=== PATIENT | female | born 1970 | race Two or more races ===

== ENCOUNTER 2018-05-17 10:24 | Inpatient (IN) | payer SELFPAY ==
[2018-05-17] VITALS (16 sets, daily range): BP systolic 114–154; BP diastolic 56–74
[~2018-05-17] VITALS: Ht 142.2 cm; Wt 54.4 kg
--- NOTE | 2018-05-17 10:42 | PHYS DOC ---
Past Medical History Past Medical History: Anemia, Arthritis Adult General Chief Complaint Chief Complaint: ANEMIA HPI HPI Patient is a 47 year old female with history of rheumatoid arthritis, who presents to the ED today to be evaluated for fatigue a shortness of breath on exertion and dizziness, symptoms for 2 weeks. Patient was seen at [facility] services today, her hemoglobin was 4.2, it was rechecked, and was 5.2 patient was sent to the ED. Patient is also complaining of palpitations and mild left- sided chest pain on exertion. She describes the pain as almost sharp just on exertion. Patient is also complaining of heavy vaginal bleeding. She states for the last 1 year she's been bleeding for 3 weeks. She is currently on her cycle which began 3 weeks ago. She soaking 1 pad every 3 hours. She appears pale and is tachycardic on arrival. Denies any rectal bleeding. Review of Systems Review of Systems Constitutional: Appears pale. Denies fever or chills [] Eyes: Denies change in visual acuity, redness, or eye pain [] HENT: Denies nasal congestion or sore throat [] Respiratory: Denies cough or shortness of breath [] Cardiovascular: Reports chest pain and palpitations GI: Denies abdominal pain, nausea, vomiting, bloody stools or diarrhea [] : Denies dysuria or hematuria [] Musculoskeletal: Denies back pain or joint pain [] Integument: Denies rash or skin lesions [] Neurologic: Denies headache, focal weakness or sensory changes [] All other systems were reviewed and found to be within normal limits, except as documented in this note. Current Medications Current Medications Current Medications Medications (Trade) Dose Ordered Sig/Jessica Start Time Stop Time Status Last Admin Dose Admin Sodium Chloride 1,000 ml @ 1,000 mls/hr 1X ONCE 05/17/18 10:45 05/17/18 11:44 DC 05/17/18 10:53 1,000 MLS/HR Allergies Allergies Allergies Coded Allergies Type Severity Reaction Last Updated Verified No Known Drug Allergies 05/17/18 No Physical Exam Physical Exam Constitutional: Pale-appearing patient.Well developed, well nourished, no acute distress, non-toxic appearance. [] HENT: Normocephalic, atraumatic, bilateral external ears normal, oropharynx moist, no oral exudates, nose normal. [] Eyes: PERRLA, EOMI, conjunctiva normal, no discharge. [] Neck: Normal range of motion, no tenderness, supple, no stridor. [] Cardiovascular: Tachycardic Lungs & Thorax: Bilateral breath sounds clear to auscultation [] Abdomen: Bowel sounds normal, soft, no tenderness, no masses, no pulsatile masses. [] Pelvic exam External pelvic is covered with bright red blood, cervix not well visualized due to bleeding, there is small amount of bright red blood in the vaginal vault , no CMT, no adnexal tenderness. Skin: Warm, dry, no erythema, no rash. [] Back: No tenderness, no CVA tenderness. [] Extremities: No tenderness, no cyanosis, no clubbing, ROM intact, no edema. [] Neurologic: Alert and oriented X 3, normal motor function, normal sensory function, no focal deficits noted. [] Psychologic: Affect normal, judgement normal, mood normal. [] Current Patient Data Vital Signs Vital Signs Date Time Temp Pulse Resp B/P (MAP) Pulse Ox O2 Delivery O2 Flow Rate FiO2 05/17/18 10:25 98.4 99 16 147/75 (99) 100 Room Air 98.4 Lab Values Laboratory Tests Test 05/17/18 10:36 05/17/18 11:10 White Blood Count 7.2 x10^3/uL (4.0-11.0) Red Blood Count 2.55 x10^6/uL (3.50-5.40) L Hemoglobin 4.2 g/dL (12.0-15.5) *L Hematocrit 14.3 % (36.0-47.0) *L Mean Corpuscular Volume 56 fL (79-100) L Mean Corpuscular Hemoglobin 16 pg (25-35) L Mean Corpuscular Hemoglobin Concent 29 g/dL (31-37) L Red Cell Distribution Width 20.8 % (11.5-14.5) H Platelet Count 345 x10^3/uL (140-400) Neutrophils (%) (Auto) 70 % (31-73) Lymphocytes (%) (Auto) 21 % (24-48) L Monocytes (%) (Auto) 6 % (0-9) Eosinophils (%) (Auto) 2 % (0-3) Basophils (%) (Auto) 1 % (0-3) Neutrophils # (Auto) 5.1 x10^3uL (1.8-7.7) Lymphocytes # (Auto) 1.5 x10^3/uL (1.0-4.8) Monocytes # (Auto) 0.4 x10^3/uL (0.0-1.1) Eosinophils # (Auto) 0.2 x10^3/uL (0.0-0.7) Basophils # (Auto) 0.1 x10^3/uL (0.0-0.2) Platelet Estimate Adequate (ADEQUATE) Polychromasia Mod Hypochromasia Marked Poikilocytosis Slight Anisocytosis Marked Sodium Level 138 mmol/L (136-145) Potassium Level 3.8 mmol/L (3.5-5.1) Chloride Level 104 mmol/L (98-107) Carbon Dioxide Level 26 mmol/L (21-32) Anion Gap 8 (6-14) Blood Urea Nitrogen 10 mg/dL (7-20) Creatinine 0.5 mg/dL (0.6-1.0) L Estimated GFR (Cockcroft-Gault) 131.1 BUN/Creatinine Ratio 20 (6-20) Glucose Level 121 mg/dL (70-99) H Calcium Level 8.6 mg/dL (8.5-10.1) Magnesium Level 2.3 mg/dL (1.8-2.4) Total Bilirubin 0.4 mg/dL (0.2-1.0) Aspartate Amino Transferase (AST) 22 U/L (15-37) Alanine Aminotransferase (ALT) 16 U/L (14-59) Alkaline Phosphatase 105 U/L (46-116) Creatine Kinase 73 U/L (26-192) Creatine Kinase MB (Mass) 0.6 ng/mL (0.0-3.6) Creatine Kinase MB Relative Index % (0-4) Troponin I Quantitative < 0.017 ng/mL (0.000-0.055) VZ-Wml-P-Type Natriuretic Peptide 198 pg/mL (0-124) H Total Protein 7.6 g/dL (6.4-8.2) Albumin 3.5 g/dL (3.4-5.0) Albumin/Globulin Ratio 0.9 (1.0-1.7) L Thyroid Stimulating Hormone (TSH) 3.624 uIU/mL (0.358-3.74) Urine Collection Type Void Urine Color Yellow Urine Clarity Clear Urine pH 7.0 Urine Specific [place] <=1.005 Urine Protein Negative mg/dL (NEG-TRACE) Urine Glucose (UA) Negative mg/dL (NEG) Urine Ketones (Stick) Negative mg/dL (NEG) Urine Blood Moderate (NEG) Urine Nitrite Negative (NEG) Urine Bilirubin Negative (NEG) Urine Urobilinogen Dipstick 0.2 mg/dL (0.2 mg/dL) Urine Leukocyte Esterase Trace (NEG) Urine RBC Occ /HPF (0-2) Urine WBC 5-10 /HPF (0-4) Urine Squamous Epithelial Cells Mod /LPF Urine Bacteria Few /HPF (0-FEW) Laboratory Tests 05/17/18 10:36 Laboratory Tests 05/17/18 10:36 EKG EKG [] Radiology/Procedures Radiology/Procedures [] Course & Med Decision Making Course & Med Decision Making Pertinent Labs and Imaging studies reviewed. (See chart for details) This is a 47-year-old female patient presenting to the ED today from [facility] to be evaluated for anemia, fatigue, chest pain, dizziness and shortness of breath.See history of present illness for further information. Patient appears pale and is tachycardic on arrival. You have been in the ED 4.2 hematocrit 14.3, on pelvic exam she had small amount of bright red blood in the vaginal vault. She's been bleeding for 3 weeks. 2 units of blood ordered. Consulted with Dr. Alexander who accepted patient for admission. Spoke with Dr. Monroy she will see patient later Interpretation was provided by family Lay Disclaimer Lay Disclaimer This electronic medical record was generated, in whole or in part, using a voice recognition dictation system. Departure Departure Impression: Primary Impression: Anemia Additional Impression: Dysfunctional uterine bleeding Disposition: ADMITTED INPATIENT Condition: STABLE Problem Qualifiers Primary Impression: Anemia Anemia type: unspecified type Qualified Codes: D64.9 - Anemia, unspecified ERIC PONCE ASSISTANT WRESTLING COACH May 17, 2018 10:42
[2018-05-17] MEDS ORDERED: IV NORMAL SALINE 1000ML BAG 1,000 ML IV ONE (10:45)
--- NOTE | 2018-05-17 10:57 | RAD ---
PROCEDURE: PORTABLE CHEST 1V CLINICAL INDICATION: DIZZINESS COMPARISON: None FINDINGS: No pneumothorax identified. Cardiac and mediastinal contours unremarkable. No pulmonary consolidation or acute airspace disease. No acute osseous abnormalities identified. IMPRESSION: No pulmonary consolidation or acute airspace disease. Electronically signed by: Conrad Zepeda DO (05/17/2018 10:54 AM) [facility]
[2018-05-17 11:18] LABS: BASO # 0.1 x10^3/uL (0.0-0.2); BASO % 1 % (0-3); EOS # 0.2 x10^3/uL (0.0-0.7); EOS % 2 % (0-3); LYMPH # 1.5 x10^3/uL (1.0-4.8); LYMPH % 21 % (24-48); MEAN CORPUSCULAR HEMOGLOBIN 16 pg (25-35); MEAN CORPUSCULAR HGB CONC 29 g/dL (31-37); MEAN CORPUSCULAR VOLUME 56 fL (79-100); MONO # 0.4 x10^3/uL (0.0-1.1); MONO % 6 % (0-9); NEUT # 5.1 x10^3uL (1.8-7.7); NEUT % 70 % (31-73); PLATELET COUNT 345 x10^3/uL (140-400); RED BLOOD COUNT 2.55 x10^6/uL (3.50-5.40); RED CELL DISTRIBUTION WIDTH 20.8 % (11.5-14.5); WHITE BLOOD COUNT 7.2 x10^3/uL (4.0-11.0)
[2018-05-17 11:21] LABS: HEMATOCRIT 14.3 % (36.0-47.0); HEMOGLOBIN 4.2 g/dL (12.0-15.5)
[2018-05-17 11:23] LABS: CALCIUM 8.6 mg/dL (8.5-10.1); CREATININE 0.5 mg/dL (0.6-1.0); GFR 131.1; POTASSIUM 3.8 mmol/L (3.5-5.1)
[2018-05-17 11:30] LABS: BILIRUBIN,URINE NEGATIVE (NEG); CLARITY,URINE CLEAR; COLOR,URINE YELLOW; NITRITE,URINE NEGATIVE (NEG); PROTEIN,URINE NEGATIVE (NEG-TRACE); UROBILINOGEN,URINE 0.2 mg/dL (0.2 mg/dL)
[2018-05-17 11:35] LABS: ALBUMIN 3.5 g/dL (3.4-5.0); ALBUMIN/GLOBULIN RATIO 0.9 (1.0-1.7); MAGNESIUM 2.3 mg/dL (1.8-2.4); TOTAL BILIRUBIN 0.4 mg/dL (0.2-1.0); TOTAL PROTEIN 7.6 g/dL (6.4-8.2)
[2018-05-17 11:38] LABS: CREATINE KINASE 73 U/L (26-192)
[2018-05-17 11:40] LABS: BACTERIA,URINE FEW /HPF (0-FEW); RBC,URINE OCC /HPF (0-2); SQUAMOUS EPITHELIAL CELL,UR MOD /LPF
--- NOTE | 2018-05-17 11:40 | EKG ---
[facility] [address] [place] [address] Test Date: 2018-05-17 Test Time: 10:32:30 Pat Name: FLORENCIO WILSON Department: Room: Gender: F Rivet Tester: : 1970 Requested By: ERIC PONCE Order Number: [id number] Reading MD: Dominik Pearce MD Measurements Intervals [place] Rate: 99 P: 126 MA: 132 QRS: 105 QRSD: 114 T: 30 QT: 336 QTc: 436 Interpretive Statements SR RBBB Electronically Signed On 05-20-2018 16:08:13 CDT by Dominik Pearce MD
[2018-05-17 11:51] LABS: ANISOCYTOSIS MARKED; HYPOCHROMIA MARKED; PLT ESTIMATE ADEQUATE (ADEQUATE); POLYCHROMASIA MOD
[2018-05-17 11:52] LABS: POIKILOCYTOSIS SLIGHT
--- NOTE | 2018-05-17 12:35 | RAD ---
PELVIS W/TV Clinical Indication: HEAVY BLEEDING FOR 3 WEEKS, ANEMIA Comparison: None. TECHNIQUE: Real-time ultrasound imaging of the pelvis using transabdominal and transvaginal window is performed. Findings: Uterus measures 9 x 5.4 x 4 cm. No focal abnormality of the myometrium. There are at least 3 nabothian cysts, largest measures 1.4 cm. The endometrial stripe is normal measuring 1.3 cm. The right ovary is not identified transabdominally or transvaginally. Left ovary measures 2.7 x 2.8 x 1.7 cm. There is normal blood flow. There is a 1.8 cm follicle. IMPRESSION: 1. Multiple nabothian cysts. 2. The right ovary is not identified. Electronically signed by: Donn Belcher MD (05/17/2018 12:32 PM) [id number]
[2018-05-17] MEDS ORDERED: ACETAMINOPHEN 325 MG TABLET. PO PRN (13:00)
[2018-05-17] MEDS ORDERED: MORPHINE SULFATE 2 MG/ML VIAL. IV PRN (13:00)
[2018-05-17] MEDS ORDERED: ONDANSETRON PF 4 MG/2 ML VIAL. IV PRN (13:00)
--- NOTE | 2018-05-17 18:40 | PDOC1 ---
History and Physical Date of Admission Date of Admission 05/17/2018 Identification/Chief Complaint Chief Complaint anemia Problems: (1) Vagina bleeding (2) Anemia Source Source: Chart review, Patient History of Present Illness History of Present Illness Patient is a 47 year ofl female with history of 3 weeks worth of vaginal bleeding. Patient has had similar symptoms in the past but has not felt this fatigued before. The patient also expereinced ringing in her ears, no palpitations, no orthostasis reported. Patient has not lost consciousness but does feel more fatigued than ususal. She was seen in an outpatient clinic wehere she was told her HB was critically low. She was found to have and anemia of 4 reason why she is being admitted. She will need MOLD DRESSER evaluation due to the acute blood loss. She denies chest pain, no headache no blurred vision, no abdominal discomfort. no nausea vomiting or diarrhea. Plan of care explained in detail. All concerns addressed to the best of my abilities. ER history: Patient is a 47 year old female with history of rheumatoid arthritis, who presents to the ED today to be evaluated for fatigue a shortness of breath on exertion and dizziness, symptoms for 2 weeks. Patient was seen at [facility] services today, her hemoglobin was 4.2, it was rechecked, and was 5.2 patient was sent to the ED. Patient is also complaining of palpitations and mild left- sided chest pain on exertion. She describes the pain as almost sharp just on exertion. Patient is also complaining of heavy vaginal bleeding. She states for the last 1 year she's been bleeding for 3 weeks. She is currently on her cycle which began 3 weeks ago. She soaking 1 pad every 3 hours. She appears pale and is tachycardic on arrival. Denies any rectal bleeding. Current Problem List Problem List Problems Medical Problems: (1) Anemia Status: Acute (2) Dysfunctional uterine bleeding Status: Acute Current Medications Current Medications Current Medications Medications (Trade) Dose Ordered Sig/[facility] Start Time Stop Time Status Last Admin Dose Admin Acetaminophen (Tylenol) 650 mg PRN Q4HRS PRN 05/17/18 13:00 05/18/18 12:59 Morphine Sulfate (Morphine Sulfate) 2 mg PRN Q2HR PRN 05/17/18 13:00 05/18/18 12:59 Ondansetron HCl (Zofran) 4 mg PRN Q8HRS PRN 05/17/18 13:00 05/18/18 12:59 Sodium Chloride 1,000 ml @ 1,000 mls/hr 1X ONCE 05/17/18 10:45 05/17/18 11:44 DC 05/17/18 10:53 1,000 MLS/HR Allergies Allergies Allergies Coded Allergies Type Severity Reaction Last Updated Verified No Known Drug Allergies 05/17/18 No ROS Review of System CONSTITUTIONAL: No fever or chills EYES: No recent changes SKIN: No rash or itching CARDIOVASCULAR: No chest pain, syncope, palpitations, or edema RESPIRATORY: No SOB or cough GASTROINTESTINAL: No nausea, vomiting or abdominal pain NEUROLOGICAL: No headaches or weakness ENDOCRINE: No cold or heat intolerance GENITOURINARY: No urgency or frequency of urination MUSCULOSKELETAL: No back pain or joint pain LYMPHATICS: No enlarged lymph nodes PSYCHIATRIC: No anxiety or depression Physical Exam Physical Exam GEN.: No apparent distress. Alert and oriented. HEENT: Head is normocephalic, atraumatic NECK: Supple. LUNGS: Clear to auscultation. HEART: RRR, S1, S2 present. Peripheral pulses intact ABDOMEN: Soft, nontender. Positive bowel sounds. EXTREMITIES: Without any cyanosis. NEUROLOGIC: Normal speech, normal tone PSYCHIATRIC: Normal affect, normal mood. SKIN: No ulcerations Vitals Vitals Vital Signs Date Time Temp Pulse Resp B/P (MAP) Pulse Ox O2 Delivery O2 Flow Rate FiO2 05/17/18 18:31 98.3 88 16 134/72 98.3 05/17/18 15:00 100 Room Air Labs Labs Laboratory Tests Test 05/17/18 10:36 05/17/18 11:10 White Blood Count 7.2 x10^3/uL (4.0-11.0) Red Blood Count 2.55 x10^6/uL (3.50-5.40) Hemoglobin 4.2 g/dL (12.0-15.5) Hematocrit 14.3 % (36.0-47.0) Mean Corpuscular Volume 56 fL (79-100) Mean Corpuscular Hemoglobin 16 pg (25-35) Mean Corpuscular Hemoglobin Concent 29 g/dL (31-37) Red Cell Distribution Width 20.8 % (11.5-14.5) Platelet Count 345 x10^3/uL (140-400) Neutrophils (%) (Auto) 70 % (31-73) Lymphocytes (%) (Auto) 21 % (24-48) Monocytes (%) (Auto) 6 % (0-9) Eosinophils (%) (Auto) 2 % (0-3) Basophils (%) (Auto) 1 % (0-3) Neutrophils # (Auto) 5.1 x10^3uL (1.8-7.7) Lymphocytes # (Auto) 1.5 x10^3/uL (1.0-4.8) Monocytes # (Auto) 0.4 x10^3/uL (0.0-1.1) Eosinophils # (Auto) 0.2 x10^3/uL (0.0-0.7) Basophils # (Auto) 0.1 x10^3/uL (0.0-0.2) Platelet Estimate Adequate (ADEQUATE) Polychromasia Mod Hypochromasia Marked Poikilocytosis Slight Anisocytosis Marked Sodium Level 138 mmol/L (136-145) Potassium Level 3.8 mmol/L (3.5-5.1) Chloride Level 104 mmol/L (98-107) Carbon Dioxide Level 26 mmol/L (21-32) Anion Gap 8 (6-14) Blood Urea Nitrogen 10 mg/dL (7-20) Creatinine 0.5 mg/dL (0.6-1.0) Estimated GFR (Cockcroft-Gault) 131.1 BUN/Creatinine Ratio 20 (6-20) Glucose Level 121 mg/dL (70-99) Calcium Level 8.6 mg/dL (8.5-10.1) Magnesium Level 2.3 mg/dL (1.8-2.4) Total Bilirubin 0.4 mg/dL (0.2-1.0) Aspartate Amino Transf (AST/SGOT) 22 U/L (15-37) Alanine Aminotransferase (ALT/SGPT) 16 U/L (14-59) Alkaline Phosphatase 105 U/L (46-116) Creatine Kinase 73 U/L (26-192) Creatine Kinase MB (Mass) 0.6 ng/mL (0.0-3.6) Creatine Kinase MB Relative Index % (0-4) Troponin I Quantitative < 0.017 ng/mL (0.000-0.055) PS-Dtr-K-Type Natriuretic Peptide 198 pg/mL (0-124) Total Protein 7.6 g/dL (6.4-8.2) Albumin 3.5 g/dL (3.4-5.0) Albumin/Globulin Ratio 0.9 (1.0-1.7) Thyroid Stimulating Hormone (TSH) 3.624 uIU/mL (0.358-3.74) Urine Collection Type Void Urine Color Yellow Urine Clarity Clear Urine pH 7.0 Urine Specific [place] <=1.005 Urine Protein Negative mg/dL (NEG-TRACE) Urine Glucose (UA) Negative mg/dL (NEG) Urine Ketones (Stick) Negative mg/dL (NEG) Urine Blood Moderate (NEG) Urine Nitrite Negative (NEG) Urine Bilirubin Negative (NEG) Urine Urobilinogen Dipstick 0.2 mg/dL (0.2 mg/dL) Urine Leukocyte Esterase Trace (NEG) Urine RBC Occ /HPF (0-2) Urine WBC 5-10 /HPF (0-4) Urine Squamous Epithelial Cells Mod /LPF Urine Bacteria Few /HPF (0-FEW) Laboratory Tests Test 05/17/18 10:36 05/17/18 11:10 White Blood Count 7.2 x10^3/uL (4.0-11.0) Red Blood Count 2.55 x10^6/uL (3.50-5.40) Hemoglobin 4.2 g/dL (12.0-15.5) Hematocrit 14.3 % (36.0-47.0) Mean Corpuscular Volume 56 fL (79-100) Mean Corpuscular Hemoglobin 16 pg (25-35) Mean Corpuscular Hemoglobin Concent 29 g/dL (31-37) Red Cell Distribution Width 20.8 % (11.5-14.5) Platelet Count 345 x10^3/uL (140-400) Neutrophils (%) (Auto) 70 % (31-73) Lymphocytes (%) (Auto) 21 % (24-48) Monocytes (%) (Auto) 6 % (0-9) Eosinophils (%) (Auto) 2 % (0-3) Basophils (%) (Auto) 1 % (0-3) Neutrophils # (Auto) 5.1 x10^3uL (1.8-7.7) Lymphocytes # (Auto) 1.5 x10^3/uL (1.0-4.8) Monocytes # (Auto) 0.4 x10^3/uL (0.0-1.1) Eosinophils # (Auto) 0.2 x10^3/uL (0.0-0.7) Basophils # (Auto) 0.1 x10^3/uL (0.0-0.2) Platelet Estimate Adequate (ADEQUATE) Polychromasia Mod Hypochromasia Marked Poikilocytosis Slight Anisocytosis Marked Sodium Level 138 mmol/L (136-145) Potassium Level 3.8 mmol/L (3.5-5.1) Chloride Level 104 mmol/L (98-107) Carbon Dioxide Level 26 mmol/L (21-32) Anion Gap 8 (6-14) Blood Urea Nitrogen 10 mg/dL (7-20) Creatinine 0.5 mg/dL (0.6-1.0) Estimated GFR (Cockcroft-Gault) 131.1 BUN/Creatinine Ratio 20 (6-20) Glucose Level 121 mg/dL (70-99) Calcium Level 8.6 mg/dL (8.5-10.1) Magnesium Level 2.3 mg/dL (1.8-2.4) Total Bilirubin 0.4 mg/dL (0.2-1.0) Aspartate Amino Transf (AST/SGOT) 22 U/L (15-37) Alanine Aminotransferase (ALT/SGPT) 16 U/L (14-59) Alkaline Phosphatase 105 U/L (46-116) Creatine Kinase 73 U/L (26-192) Creatine Kinase MB (Mass) 0.6 ng/mL (0.0-3.6) Creatine Kinase MB Relative Index % (0-4) Troponin I Quantitative < 0.017 ng/mL (0.000-0.055) GH-Wcl-G-Type Natriuretic Peptide 198 pg/mL (0-124) Total Protein 7.6 g/dL (6.4-8.2) Albumin 3.5 g/dL (3.4-5.0) Albumin/Globulin Ratio 0.9 (1.0-1.7) Thyroid Stimulating Hormone (TSH) 3.624 uIU/mL (0.358-3.74) Urine Collection Type Void Urine Color Yellow Urine Clarity Clear Urine pH 7.0 Urine Specific [place] <=1.005 Urine Protein Negative mg/dL (NEG-TRACE) Urine Glucose (UA) Negative mg/dL (NEG) Urine Ketones (Stick) Negative mg/dL (NEG) Urine Blood Moderate (NEG) Urine Nitrite Negative (NEG) Urine Bilirubin Negative (NEG) Urine Urobilinogen Dipstick 0.2 mg/dL (0.2 mg/dL) Urine Leukocyte Esterase Trace (NEG) Urine RBC Occ /HPF (0-2) Urine WBC 5-10 /HPF (0-4) Urine Squamous Epithelial Cells Mod /LPF Urine Bacteria Few /HPF (0-FEW) VTE Prophylaxis Ordered VTE Prophylaxis Devices: Yes VTE Pharmacological Prophylaxi: No Assessment/Plan Assessment/Plan Vaginal bleeding Microcytic anemia secodnary to acute blood loss DUB History of RA on methotrexate Folic acid supplementation. Plan: transfuse 3 units of PRBC consult MOLD DRESSER resume home meds hold anticoagulation further reocmmendations based on clinical course. DVT prophylaxis: SCD and TEDs Problem Qualifiers (1) Anemia: Anemia type: unspecified type Qualified Codes: D64.9 - Anemia, unspecified MARCELLO ZHAO MD May 17, 2018 18:40
[2018-05-18 03:00] VITALS: BP 135/74
--- NOTE | 2018-05-18 06:43 | CONS ---
DATE OF CONSULTATION: HISTORY OF PRESENT ILLNESS: This patient is a 47-year-old [place] lady who is a 3, para 3, came in to the Emergency Room because of dizziness, vaginal bleeding and anemia. She had a hemoglobin of 4 at the time of admission to the hospital and she has received 3 units of blood transfusion at this time. She is seen in consultation for vaginal bleeding and she is a 3, para 3 and has history of excessive bleeding with the period. She has been bleeding since 04/23/2018 and at the present time, the bleeding has slowed down and also she has received the blood transfusion. PHYSICAL EXAMINATION: ABDOMEN: Feels soft. PELVIC: Shows external genitalia being normal. Cervical os is closed. UTERUS: On bimanual exam, uterus feels slightly bulky. No adnexal masses are palpable at this time. EXTREMITIES: No edema of feet. IMPRESSION: Dysfunctional uterine bleeding, menorrhagia. RECOMMENDATION: Would be whenever the patient is stable, she is going to need a diagnostic D and C, which has been explained to the patient and she prefers to have medical treatment at this time and not surgery, hence we will give her 200 mg of Depo-Provera IM to stop the bleeding at this time. Thank you for giving me opportunity to participate in the care and management of this patient. DELLA LEMUS MD DR: FRANSISCO/sven JOB#: [id number] / [id number]
[2018-05-18 07:00] VITALS: BP 131/73
[2018-05-18 07:54] LABS: BASO # 0.1 x10^3/uL (0.0-0.2); BASO % 1 % (0-3); EOS # 0.3 x10^3/uL (0.0-0.7); EOS % 3 % (0-3); HEMATOCRIT 28.5 % (36.0-47.0); HEMOGLOBIN 9.1 g/dL (12.0-15.5); LYMPH # 1.9 x10^3/uL (1.0-4.8); LYMPH % 21 % (24-48); MEAN CORPUSCULAR HEMOGLOBIN 23 pg (25-35); MEAN CORPUSCULAR HGB CONC 32 g/dL (31-37); MEAN CORPUSCULAR VOLUME 72 fL (79-100); MONO # 0.8 x10^3/uL (0.0-1.1); MONO % 8 % (0-9); NEUT # 6.1 x10^3uL (1.8-7.7); NEUT % 66 % (31-73); PLATELET COUNT 276 x10^3/uL (140-400); RED BLOOD COUNT 3.97 x10^6/uL (3.50-5.40); RED CELL DISTRIBUTION WIDTH 32.8 % (11.5-14.5); WHITE BLOOD COUNT 9.3 x10^3/uL (4.0-11.0)
[2018-05-18 08:22] LABS: CALCIUM 8.3 mg/dL (8.5-10.1); CREATININE 0.6 mg/dL (0.6-1.0); GFR 106.3; POTASSIUM 4.4 mmol/L (3.5-5.1)
[2018-05-18] MEDS ORDERED: medroxyPROGESTERone IM 150 MG/ML VIAL. IM ONE (09:00)
[2018-05-18 11:00] VITALS: BP 147/70
--- NOTE | 2018-05-18 11:22 | PDOC ---
PROGRESS NOTES Chief Complaint Chief Complaint Dysfunction Uterine Bleeding Microcytic anemia secondary to acute blood loss Low Hemoglobin - 4 s/p 3 units, Hgb currently 9.1 History of RA on methotrexate Folic acid supplementation History of Present Illness History of Present Illness Ms. Saldivar presented with significant vaginal bleeding with Hgb of 4. Patient was seen by workforce development assistant and started on Depo-Provera. Bleeding has improved. Patient seen and examined at bedside. Discussed with nurse. Patient ready for discharge and follow up with RADIATION PROTECTION TECHNICIAN outpatient. Hemoglobin elevated at 9.1 s/p 3 Units. Vitals Vitals Vital Signs Date Time Temp Pulse Resp B/P (MAP) Pulse Ox O2 Delivery O2 Flow Rate FiO2 05/18/18 07:00 98.3 80 18 131/73 (92) 99 Room Air 98.3 Physical Exam General: Alert, Oriented X3, Cooperative, No acute distress Heart: Regular rate, No murmurs Lungs: Clear Abdomen: Normal bowel sounds, Soft, No tenderness Extremities: No clubbing, No cyanosis, No edema Skin: No rashes, No significant lesion Labs LABS Laboratory Tests Test 05/18/18 06:20 05/18/18 06:30 Sodium Level 142 mmol/L (136-145) Potassium Level 4.4 mmol/L (3.5-5.1) Chloride Level 107 mmol/L (98-107) Carbon Dioxide Level 24 mmol/L (21-32) Anion Gap 11 (6-14) Blood Urea Nitrogen 10 mg/dL (7-20) Creatinine 0.6 mg/dL (0.6-1.0) Estimated GFR (Cockcroft-Gault) 106.3 Glucose Level 85 mg/dL (70-99) Calcium Level 8.3 mg/dL (8.5-10.1) White Blood Count 9.3 x10^3/uL (4.0-11.0) Red Blood Count 3.97 x10^6/uL (3.50-5.40) Hemoglobin 9.1 g/dL (12.0-15.5) Hematocrit 28.5 % (36.0-47.0) Mean Corpuscular Volume 72 fL (79-100) Mean Corpuscular Hemoglobin 23 pg (25-35) Mean Corpuscular Hemoglobin Concent 32 g/dL (31-37) Red Cell Distribution Width 32.8 % (11.5-14.5) Platelet Count 276 x10^3/uL (140-400) Neutrophils (%) (Auto) 66 % (31-73) Lymphocytes (%) (Auto) 21 % (24-48) Monocytes (%) (Auto) 8 % (0-9) Eosinophils (%) (Auto) 3 % (0-3) Basophils (%) (Auto) 1 % (0-3) Neutrophils # (Auto) 6.1 x10^3uL (1.8-7.7) Lymphocytes # (Auto) 1.9 x10^3/uL (1.0-4.8) Monocytes # (Auto) 0.8 x10^3/uL (0.0-1.1) Eosinophils # (Auto) 0.3 x10^3/uL (0.0-0.7) Basophils # (Auto) 0.1 x10^3/uL (0.0-0.2) Review of Systems Review of Systems Denies vaginal bleeding Denies abdominal pain Denies fevers, chills Denies nausea/vomiting Assessment and Plan Assessmemt and Plan Problems Medical Problems: (1) Anemia Status: Acute (2) Dysfunctional uterine bleeding Status: Acute Assessment: Dysfunction Uterine Bleeding Microcytic anemia secondary to acute blood loss Low Hemoglobin - 4 s/p 3 units, Hgb currently 9.1 History of RA on methotrexate Folic acid supplementation Plan: Discharge today if agreeable with Dressage Instructor Follow up with PCP and Dressage Instructor outpatient Return to ED with worsening bleeding Continue to monitor hgb Monitor vitals Comment Review of Relevant I have reviewed the following items rsa (where applicable) has been applied. Labs Laboratory Tests Test 05/17/18 10:36 05/17/18 11:10 05/18/18 06:20 05/18/18 06:30 White Blood Count 7.2 x10^3/uL (4.0-11.0) 9.3 x10^3/uL (4.0-11.0) Red Blood Count 2.55 x10^6/uL (3.50-5.40) 3.97 x10^6/uL (3.50-5.40) Hemoglobin 4.2 g/dL (12.0-15.5) 9.1 g/dL (12.0-15.5) Hematocrit 14.3 % (36.0-47.0) 28.5 % (36.0-47.0) Mean Corpuscular Volume 56 fL (79-100) 72 fL (79-100) Mean Corpuscular Hemoglobin 16 pg (25-35) 23 pg (25-35) Mean Corpuscular Hemoglobin Concent 29 g/dL (31-37) 32 g/dL (31-37) Red Cell Distribution Width 20.8 % (11.5-14.5) 32.8 % (11.5-14.5) Platelet Count 345 x10^3/uL (140-400) 276 x10^3/uL (140-400) Neutrophils (%) (Auto) 70 % (31-73) 66 % (31-73) Lymphocytes (%) (Auto) 21 % (24-48) 21 % (24-48) Monocytes (%) (Auto) 6 % (0-9) 8 % (0-9) Eosinophils (%) (Auto) 2 % (0-3) 3 % (0-3) Basophils (%) (Auto) 1 % (0-3) 1 % (0-3) Neutrophils # (Auto) 5.1 x10^3uL (1.8-7.7) 6.1 x10^3uL (1.8-7.7) Lymphocytes # (Auto) 1.5 x10^3/uL (1.0-4.8) 1.9 x10^3/uL (1.0-4.8) Monocytes # (Auto) 0.4 x10^3/uL (0.0-1.1) 0.8 x10^3/uL (0.0-1.1) Eosinophils # (Auto) 0.2 x10^3/uL (0.0-0.7) 0.3 x10^3/uL (0.0-0.7) Basophils # (Auto) 0.1 x10^3/uL (0.0-0.2) 0.1 x10^3/uL (0.0-0.2) Platelet Estimate Adequate (ADEQUATE) Polychromasia Mod Hypochromasia Marked Poikilocytosis Slight Anisocytosis Marked Sodium Level 138 mmol/L (136-145) 142 mmol/L (136-145) Potassium Level 3.8 mmol/L (3.5-5.1) 4.4 mmol/L (3.5-5.1) Chloride Level 104 mmol/L (98-107) 107 mmol/L (98-107) Carbon Dioxide Level 26 mmol/L (21-32) 24 mmol/L (21-32) Anion Gap 8 (6-14) 11 (6-14) Blood Urea Nitrogen 10 mg/dL (7-20) 10 mg/dL (7-20) Creatinine 0.5 mg/dL (0.6-1.0) 0.6 mg/dL (0.6-1.0) Estimated GFR (Cockcroft-Gault) 131.1 106.3 BUN/Creatinine Ratio 20 (6-20) Glucose Level 121 mg/dL (70-99) 85 mg/dL (70-99) Calcium Level 8.6 mg/dL (8.5-10.1) 8.3 mg/dL (8.5-10.1) Magnesium Level 2.3 mg/dL (1.8-2.4) Total Bilirubin 0.4 mg/dL (0.2-1.0) Aspartate Amino Transf (AST/SGOT) 22 U/L (15-37) Alanine Aminotransferase (ALT/SGPT) 16 U/L (14-59) Alkaline Phosphatase 105 U/L (46-116) Creatine Kinase 73 U/L (26-192) Creatine Kinase MB (Mass) 0.6 ng/mL (0.0-3.6) Creatine Kinase MB Relative Index % (0-4) Troponin I Quantitative < 0.017 ng/mL (0.000-0.055) MZ-Plw-M-Type Natriuretic Peptide 198 pg/mL (0-124) Total Protein 7.6 g/dL (6.4-8.2) Albumin 3.5 g/dL (3.4-5.0) Albumin/Globulin Ratio 0.9 (1.0-1.7) Thyroid Stimulating Hormone (TSH) 3.624 uIU/mL (0.358-3.74) Urine Collection Type Void Urine Color Yellow Urine Clarity Clear Urine pH 7.0 Urine Specific [place] <=1.005 Urine Protein Negative mg/dL (NEG-TRACE) Urine Glucose (UA) Negative mg/dL (NEG) Urine Ketones (Stick) Negative mg/dL (NEG) Urine Blood Moderate (NEG) Urine Nitrite Negative (NEG) Urine Bilirubin Negative (NEG) Urine Urobilinogen Dipstick 0.2 mg/dL (0.2 mg/dL) Urine Leukocyte Esterase Trace (NEG) Urine RBC Occ /HPF (0-2) Urine WBC 5-10 /HPF (0-4) Urine Squamous Epithelial Cells Mod /LPF Urine Bacteria Few /HPF (0-FEW) Laboratory Tests Test 05/18/18 06:20 05/18/18 06:30 Sodium Level 142 mmol/L (136-145) Potassium Level 4.4 mmol/L (3.5-5.1) Chloride Level 107 mmol/L (98-107) Carbon Dioxide Level 24 mmol/L (21-32) Anion Gap 11 (6-14) Blood Urea Nitrogen 10 mg/dL (7-20) Creatinine 0.6 mg/dL (0.6-1.0) Estimated GFR (Cockcroft-Gault) 106.3 Glucose Level 85 mg/dL (70-99) Calcium Level 8.3 mg/dL (8.5-10.1) White Blood Count 9.3 x10^3/uL (4.0-11.0) Red Blood Count 3.97 x10^6/uL (3.50-5.40) Hemoglobin 9.1 g/dL (12.0-15.5) Hematocrit 28.5 % (36.0-47.0) Mean Corpuscular Volume 72 fL (79-100) Mean Corpuscular Hemoglobin 23 pg (25-35) Mean Corpuscular Hemoglobin Concent 32 g/dL (31-37) Red Cell Distribution Width 32.8 % (11.5-14.5) Platelet Count 276 x10^3/uL (140-400) Neutrophils (%) (Auto) 66 % (31-73) Lymphocytes (%) (Auto) 21 % (24-48) Monocytes (%) (Auto) 8 % (0-9) Eosinophils (%) (Auto) 3 % (0-3) Basophils (%) (Auto) 1 % (0-3) Neutrophils # (Auto) 6.1 x10^3uL (1.8-7.7) Lymphocytes # (Auto) 1.9 x10^3/uL (1.0-4.8) Monocytes # (Auto) 0.8 x10^3/uL (0.0-1.1) Eosinophils # (Auto) 0.3 x10^3/uL (0.0-0.7) Basophils # (Auto) 0.1 x10^3/uL (0.0-0.2) Medications Current Medications Sodium Chloride 1,000 ml @ 1,000 mls/hr 1X ONCE IV Last administered on at 10:53; Start 05/17/18 at 10:45; Stop 05/17/18 at 11:44; Status DC Ondansetron HCl (Zofran) 4 mg PRN Q8HRS PRN IV NAUSEA/VOMITING; Start 05/17/18 at 13:00; Stop 05/18/18 at 12:59 Morphine Sulfate (Morphine Sulfate) 2 mg PRN Q2HR PRN IV PAIN; Start 05/17/18 at 13:00; Stop 05/18/18 at 12:59 Acetaminophen (Tylenol) 650 mg PRN Q4HRS PRN PO FEVER Last administered on 05/18at 01:57; Start 05/17/18 at 13:00; Stop 05/18/18 at 12:59 Medroxyprogesterone Acetate (Depo-Provera Im) 200 mg 1X ONCE IM Last administered on 05/18/18at 08:59; Start 05/18/18 at 09:00; Stop 05/18/18 at 09:01 ; Status DC Vitals/I & O Vital Sign - Last 24 Hours 05/17/18 05/17/18 05/17/18 05/17/18 11:25 11:55 12:25 12:43 Temp 98.6 98.6 98.6 98.6 Pulse 92 89 95 93 Resp 16 18 18 18 B/P (MAP) 120/72 (88) 125/68 (87) 115/51 (72) 114/56 Pulse Ox 99 98 100 O2 Delivery Room Air Room Air Room Air 05/17/18 05/17/18 05/17/18 05/17/18 12:58 12:58 13:12 13:52 Temp 99.1 99.1 99.1 98.6 99.1 99.1 99.1 98.6 Pulse 92 89 96 Resp 18 16 16 B/P (MAP) 116/65 116/65 124/63 (83) Pulse Ox 100 O2 Delivery Room Air 05/17/18 05/17/18 05/17/18 05/17/18 14:00 14:12 15:00 15:32 Temp 98.5 98.6 98.6 98.5 98.6 98.6 Pulse 103 89 89 Resp 16 14 B/P (MAP) 132/74 154/61 (92) 154/61 Pulse Ox 100 O2 Delivery Room Air Room Air 05/17/18 05/17/18 05/17/18 05/17/18 15:55 16:55 18:31 18:49 Temp 98.6 98.3 98.3 98.3 98.6 98.3 98.3 98.3 Pulse 86 86 88 98 Resp 16 16 B/P (MAP) 116/62 127/64 134/72 115/59 05/17/18 05/17/18 05/17/18 05/17/18 19:00 19:46 20:00 20:36 Temp 98.6 98.8 98.7 98.6 98.8 98.7 Pulse 101 92 90 Resp 18 B/P (MAP) 124/63 (83) 129/66 128/68 Pulse Ox 98 O2 Delivery Room Air Room Air 05/17/18 05/17/18 05/18/18 05/18/18 22:03 23:00 03:00 07:00 Temp 98.0 99.0 98.8 98.3 98.0 99.0 98.8 98.3 Pulse 89 87 81 80 Resp 18 B/P (MAP) 129/70 125/74 (91) 135/74 (94) 131/73 (92) Pulse Ox 98 98 99 O2 Delivery Room Air Room Air Room Air Intake and Output 05/17/18 05/17/18 05/18/18 15:00 23:00 07:00 Intake Total 1656 ml 410 ml 600 ml Balance 1656 ml 410 ml 600 ml WESLEY RACHEL III DO May 18, 2018 11:22
--- NOTE | 2018-05-18 13:18 | DS ---
DATE OF DISCHARGE: 05/18/2018 ADMISSION DIAGNOSES: Anemia with dizziness and vaginal bleeding. DISCHARGE DIAGNOSIS: Dysfunctional uterine bleeding with resolving anemia. HOSPITAL COURSE: The patient is a pleasant 47-year-old healthy female who basically has dysfunctional uterine bleeding. She presented with a hemoglobin of 4. We admitted her. Transfused 3 units, is now up to 9.1. We did consult Dr. Biggs of the Gynecology Service. Clinically, the patient is at her baseline. Examined her this morning. Heart tones were normal. Lungs were clear. We plan to discharge with close outpatient followup. DISPOSITION: Home. ACTIVITY: As tolerated. DIET: Low sodium. MEDICATIONS: Please see the MRAD. TOTAL TIME: 32 minutes. WESLEY RACHEL DO DR: MICHELLE/sven JOB#: [id number] / [id number]
--- NOTE | 2018-05-18 14:33 | NUR ---
Discharge teaching provided written and verbal to pt's daughter,understanding verbalized. Pt dismissed to home with all belongings accompanied by her daughters. Transported to exit per w/c at 1433.
== END 2018-05-18 14:33 | disposition home or self-care (01) | DRG 760 ==
LOC: ER 10:24 → 5 NORTH 12:08
PROVIDERS: ADMIT Internal Medicine; ATTEND Internal Medicine
PROC: 30233N1 Transfusion of Nonautologous Red Blood Cells into Peripheral Vein, Percutaneous Approach (ICD-10-PCS; principal; 2018-05-17)
DX: N93.8 Other specified abnormal uterine and vaginal bleeding (principal); D62 Acute posthemorrhagic anemia; N92.0 Excessive and frequent menstruation with regular cycle; M06.9 Rheumatoid arthritis, unspecified; Z79.899 Other long term (current) drug therapy
CPT/HCPCS: 36415; 36430; 71045; 76830; 76856; 80048; 80053; 81001; 82553; 83735; 83880; 84443; 84484; 85025; 86850; 86900; 86901; 86920; 87086; 93005; 96360; 96361; J7030; P9016; 99285-25